=== PATIENT | male | born 1995 | race Caucasian/White ===

== ENCOUNTER 2019-05-10 07:32 | Emergency (ER) | payer SELFPAY ==
[~2019-05-10] VITALS: Ht 167.6 cm; Wt 68.9 kg
[2019-05-10 07:35] VITALS: BP 149/84
[2019-05-10] MEDS ORDERED: NACL 0.9% 1,000 ML IV ONE (07:50)
[2019-05-10] MEDS ORDERED: ONDANSETRON 4 MG/2 ML VIAL IVP ONE (07:50)
[2019-05-10] MEDS ORDERED: MORPHINE SULFATE 4 MG/ML SYR IVP ONE (07:50)
[2019-05-10 08:13] LABS: BASOPHILS % (AUTO) 0.3 % (0.0-2.0); HEMATOCRIT 47.8 % (36-52); LYMPHOCYTES # (AUTO) 0.4 K/uL (2.0-11.5); LYMPHOCYTES % (AUTO) 2.8 % (20.5-51.1); MEAN CORPUSCULAR HEMOGLOBIN 31 pg (27-31); MEAN CORPUSCULAR HGB CONC 34 g/dL (33-37); MEAN CORPUSCULAR VOLUME 90.9 fL (80-94); MONOCYTES # (AUTO) 0.4 K/uL (0.8-1.0); MONOCYTES % (AUTO) 2.7 % (1.7-9.3); NEUTROPHILS # (AUTO) 12.5 K/uL (1.8-7.7); NEUTROPHILS % (AUTO) 94.2 % (42.2-75.2); PLATELET COUNT (AUTO) 402 K/uL (140-450); RED BLOOD CELL COUNT(AUTO) 5.26 MIL/uL (4.20-6.10); RED CELL DISTRIBUTION WIDTH 12.8 % (11.6-13.7); WHITE BLOOD COUNT (AUTO) 13.3 K/uL (4.8-10.8)
[2019-05-10 08:26] LABS: ALBUMIN 4.7 g/dL (3.4-5.0); CARBON DIOXIDE 27.7 mmol/L (21-32); CREATININE 0.9 mg/dL (0.7-1.3); POTASSIUM 3.7 mmol/L (3.5-5.1)
[2019-05-10 09:16] VITALS: BP 116/64
== END 2019-05-10 09:16 | disposition home or self-care (01) ==
LOC: MED 07:32
DX: R11.10 Vomiting, unspecified (principal); R19.7 Diarrhea, unspecified; R10.13 Epigastric pain; F12.90 Cannabis use, unspecified, uncomplicated
CPT/HCPCS: 36415; 80053; 83690; 85025; 96361; 96374; 96375; 99283; J2270; J2405; J7030

== ENCOUNTER 2021-10-14 12:51 | Emergency (ER) | payer SELFPAY ==
[~2021-10-14] VITALS: Ht 170.2 cm; Wt 73.0 kg
[2021-10-14 13:10] VITALS: BP 142/97
[2021-10-14] MEDS ORDERED: ONDANSETRON 4 MG ODT PO ONE (14:15)
[2021-10-14] MEDS ORDERED: DICYCLOMINE HCL LIQUID 20 MG, ALUMINUM HYD/MAG/SIMETHICONE 30 ML, LIDOCAINE VISCOUS 2% ... PO ONE ×3 (14:15)
[2021-10-14] MEDS ORDERED: LOPE-143 PO (14:36)
[2021-10-14] MEDS ORDERED: ONDA-188 SL (14:36)
[2021-10-14] MEDS ORDERED: DICYCLOMINE HCL LIQUID 10 MG/5 ML UDC ONE (14:58)
[2021-10-14] MEDS ORDERED: ALUMINUM HYD/MAG/SIMETHICONE 30 ML UDC ONE (14:58)
[2021-10-14 15:10] VITALS: BP 142/97
[2021-10-15] MEDS ORDERED: ONDA-188 PO (05:53)
== END 2021-10-14 15:11 | disposition home or self-care (01) ==
LOC: MED 12:51
DX: R11.2 Nausea with vomiting, unspecified (principal); R19.7 Diarrhea, unspecified; R10.84 Generalized abdominal pain; Z79.899 Other long term (current) drug therapy
CPT/HCPCS: 99283; Q0162

== ENCOUNTER 2021-10-15 05:12 | Emergency (ER) | payer SELFPAY ==
[~2021-10-15] VITALS: Ht 170.2 cm; Wt 72.6 kg
[~2021-10-15 05:12] MED LIST: LOPE-143 PO; ONDA-188 SL
[2021-10-15 05:15] VITALS: BP 143/52
--- NOTE | 2021-10-15 05:15 | NUR ---
TO BED AMBULATORY
--- NOTE | 2021-10-15 05:33 | NUR ---
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 PT STATES HE CAME EARLIER AND THE GI COCKTAIL REALLY HELPED BUT BEGAIN THROWING UP NONSTOP AGAIN . DENIES F/D/COUGH/CHEST PAIN/ SOB; SKIN IS PINK/WARM/DRY; AAOX4 WITH EVEN AND STEADY GAIT; LUNGS CLEAR BL; HR EVEN AND REGULAR; PATIENT STATES PAIN OF 10/10 AT THIS TIME; VSS; PATIENT POSITIONED FOR COMFORT; HOB ELEVATED; BEDRAILS UP X2; BED DOWN. ER MD MADE AWARE OF PT STATUS. PMH: HISTORY OF GI UPSET, ALCHOLISM ALLERGIES: JOSEPH LI
[2021-10-15] MEDS ORDERED: NACL 0.9% 1,000 ML IV ONE (05:35)
[2021-10-15] MEDS ORDERED: ONDANSETRON 4 MG/2 ML VIAL IVP ONE (05:35)
[2021-10-15] MEDS ORDERED: FAMOTIDINE 20 MG/2 ML VIAL IVP ONE (05:35)
--- NOTE | 2021-10-15 05:36 | NUR ---
Dr. Galeas examining patient.
[2021-10-15] MEDS ORDERED: DICYCLOMINE HCL LIQUID 10 MG/5 ML UDC PO ONE (05:40)
[2021-10-15] MEDS ORDERED: HALOPERIDOL IM 5 MG/ML VIAL IVP ONE (05:45)
[2021-10-15] MEDS ORDERED: ONDA-188 PO (05:53)
[2021-10-15 06:05] LABS: BASOPHILS % (AUTO) 0.2 % (0.0-2.0); EOSINOPHILS % (AUTO) 0.2 % (0.0-4.0); HEMATOCRIT 43.7 % (36-52); HEMOGLOBIN 15.1 g/dL (12.0-18.0); LYMPHOCYTES % (AUTO) 15.4 % (20.5-51.1); MEAN CORPUSCULAR HEMOGLOBIN 31 pg (27-31); MEAN CORPUSCULAR HGB CONC 35 g/dL (33-37); MEAN CORPUSCULAR VOLUME 88.5 fL (80-94); MONOCYTES # (AUTO) 0.6 K/uL (0.8-1.0); MONOCYTES % (AUTO) 4.9 % (1.7-9.3); NEUTROPHILS # (AUTO) 10.2 K/uL (1.8-7.7); NEUTROPHILS % (AUTO) 79.3 % (42.2-75.2); PLATELET COUNT (AUTO) 418 K/uL (140-450); RED BLOOD CELL COUNT(AUTO) 4.93 MIL/uL (4.20-6.10); RED CELL DISTRIBUTION WIDTH 13.1 % (11.6-13.7); WHITE BLOOD COUNT (AUTO) 12.9 K/uL (4.8-10.8)
[2021-10-15] MEDS ORDERED: diphenhydrAMINE 50 MG/ML VIAL IVP ONE (06:15)
[2021-10-15] MEDS ORDERED: PROCHLORPERAZINE 10 MG/2 ML VIAL IVP ONE (06:15)
[2021-10-15 06:41] LABS: ALBUMIN 4.1 g/dL (3.4-5.0); ANION GAP 15.9 (8-16); ASPARTATE AMINOTRANSFERASE 22 U/L (15-37); CARBON DIOXIDE 24.3 mmol/L (21-32); CHLORIDE 100 mmol/L (98-107); CREATININE 1.1 mg/dL (0.6-1.3); GFR ARICAN-AMERICAN 103 mL/min (>90); GLUCOSE 124 mg/dL (74-106); LIPASE 560 U/L (73-393); POTASSIUM 3.2 mmol/L (3.5-5.1); SODIUM SERUM 137 mmol/L (136-145); UREA NITROGEN, BLOOD 8 mg/dL (7-18)
[2021-10-15 06:45] LABS: SALICYLATE < 2.8 mg/dL (2.8-20.0)
--- NOTE | 2021-10-15 07:16 | NUR ---
Pt report given to PAM BATES. Transfer of care at this time.
--- NOTE | 2021-10-15 07:31 | NUR ---
ASSUMED CARE FOR PT.
[2021-10-15 08:10] LABS: BARBITURATE, URINE NEGATIVE ng/ml (NEG <=200); BENZODIAZEPINE, URINE NEGATIVE ng/mL (NEG <=200); COCAINE, URINE NEGATIVE ng/mL (NEG <=300)
[2021-10-15 08:11] LABS: CANNABINOID, URINE POSITIVE ng/mL (NEG <=50); OPIATE, URINE NEGATIVE ng/mL (NEG <=2000); PHENCYCLIDINE SCREEN,URINE NEGATIVE ng/mL (NEG <=25)
[2021-10-15 09:02] LABS: ACETAMINOPHEN < 0.5 ug/ml (10-30)
[2021-10-15] MEDS ORDERED: POTASSIUM CHLORIDE 10 MEQ TABER PO ONE (09:10)
[2021-10-15 09:51] VITALS: BP 149/98
== END 2021-10-15 09:55 | disposition home or self-care (01) ==
LOC: MED 05:12
DX: R11.2 Nausea with vomiting, unspecified (principal); R10.84 Generalized abdominal pain; Z79.899 Other long term (current) drug therapy
CPT/HCPCS: 36415; 80053; 80305; 83690; 85025; 96361; 96374; 96375; 99285; G0480; G0482; J0780; J1200; J1630; J2405; J3490; J7030

== ENCOUNTER 2022-10-30 19:07 | Emergency (ER) | payer MEDICAID ==
[~2022-10-30] VITALS: Ht 170.2 cm; Wt 73.9 kg
[~2022-10-30 19:07] MED LIST changes: +ONDA-188 PO
[2022-10-30 19:35] VITALS: BP 135/81
--- NOTE | 2022-10-30 20:21 | NUR ---
W/C ASSISTED TO BED 8
--- NOTE | 2022-10-30 20:37 | NUR ---
27YR OLD MALE BIB SELF C/O R ANKLE PAIN S/P INJURY. PT TRIPPED OVER A SCOOTER +SWELLING TO R ANKLE +ROM +CAP REFILL PT STATES PAIN IS 10/10 SHARP NO OTHER INJURIES . AT BEDSIDE. NKDA NO MED HX
--- NOTE | 2022-10-30 20:39 | NUR ---
XRAY AT BEDSIDE
--- NOTE | 2022-10-30 23:15 | NUR ---
Patient discharged with v/s stable. Written and verbal after care instructions given and explained. Patient verbalized understanding. Wheel Chair Assisted with steady gait. All questions addressed prior to discharge. Advised to follow up with PMD.
== END 2022-10-30 23:15 | disposition home or self-care (01) ==
LOC: MED 19:07
DX: S93.601A Unspecified sprain of right foot, initial encounter (principal); Z79.899 Other long term (current) drug therapy; F10.10 Alcohol abuse, uncomplicated; Y90.9 Presence of alcohol in blood, level not specified; W18.39XA Other fall on same level, initial encounter; Y92.89 Other specified places as the place of occurrence of the external cause; Y93.89 Activity, other specified; Y99.8 Other external cause status
CPT/HCPCS: 73630; 99283; Q0092

== ENCOUNTER 2024-02-11 23:28 | Emergency (ER) | payer MEDICAID, OTHER ==
[~2024-02-11] VITALS: Ht 170.2 cm; Wt 74.8 kg
[2024-02-11 23:33] VITALS: BP 136/94; PULSE 97; RESP 18; TEMP 97; O2SAT 97
[2024-02-12 00:27] VITALS: BP 136/94; PULSE 97; RESP 18; TEMP 97; O2SAT 97
[2024-02-12] MEDS ORDERED: NAPR-337 PO (00:30)
[2024-02-12] MEDS ORDERED: CIPR500T4 PO (00:30)
== END 2024-02-12 00:35 | disposition home or self-care (01) ==
LOC: MED 23:28
DX: N45.1 Epididymitis (principal); Z79.1 Long term (current) use of non-steroidal anti-inflammatories (NSAID); Z79.2 Long term (current) use of antibiotics; Z79.899 Other long term (current) drug therapy
CPT/HCPCS: 99281; 99283